=== PATIENT | male | born 1935 | race Caucasian/White ===

== ENCOUNTER 2019-05-10 15:30 | Outpatient (RCR) | payer MEDICARE, SELFPAY | END 2019-05-17 13:18 | disposition home or self-care (01) | LOC: ANHHIREHAB 15:30 | PROVIDERS: PCP Internal Medicine; Visit Provider Orthopaedic Surgery | DX: Z47.1 Aftercare following joint replacement surgery (principal) | CPT/HCPCS: 97110 ×9; 97140 ×2; 97162 ==

== ENCOUNTER 2019-09-26 12:12 | Outpatient (CLI) | payer MEDICARE, SELFPAY ==
--- NOTE | ~2019-09-26 | XR_ITS ---
EXAMINATION: XR md joint inject/aspiration DATE: 09/26/2019 13:20 INDICATION: Left elbow osteoarthritis and pain. TECHNIQUE: A time-out was performed to verify the patient's name, date of , and procedure to b e performed. The procedure including the risks, benefits, and alternatives was discussed with the pat ient. Risks discussed included bleeding and infection. The patient understood the risks and agreed to proceed. The skin overlying the left elbow joint was prepped and draped in usual sterile fashion. Anesthetic was administered with 1% lidocaine subcutaneously. A 23 G needle was advanced under fluor oscopic guidance into the joint. Injection of 1 mL of Omnipaque 240 confirmed intra-articular positi on of the needle. Subsequently, injectate consisting of 3 mL 1% lidocaine and 1 mL 40 mg/mL Depo-Med rol was instilled. The needle was removed and the entry site was cleaned and dressed. There were no immediate complications. Fluoroscopy exposure time was 0.1 minutes. The total number of images was 2 . FINDINGS: Real-time fluoroscopy demonstrates the needle in the left elbow joint. Patient's pain prior to procedure:0/10. IMPRESSION: 1. Left elbow joint injection of local anesthetic and steroid . Reviewed, dictated and finalized at location A. [employer]
== END 2019-09-26 12:13 | disposition home or self-care (01) ==
PROVIDERS: PCP Internal Medicine; Visit Provider Orthopaedic Surgery
DX: M19.022 Primary osteoarthritis, left elbow (principal)
CPT/HCPCS: 20605; J1030; Q9966

== ENCOUNTER → 2020-12-29 11:16 | Outpatient (REF) | payer MEDICARE, SELFPAY | LOC: ANHLAB 11:16 | PROVIDERS: PCP Internal Medicine; Visit Provider Nurse Practitioner | DX: L30.9 Dermatitis, unspecified (principal) | CPT/HCPCS: 88305 ==

== ENCOUNTER → 2021-12-28 11:15 | Outpatient (REF) | payer MEDICARE, SELFPAY | LOC: ANHLAB 11:15 | PROVIDERS: PCP Internal Medicine; Visit Provider Nurse Practitioner | DX: D49.2 Neoplasm of unspecified behavior of bone, soft tissue, and skin (principal) | CPT/HCPCS: 88305 ==

== ENCOUNTER 2023-01-20 15:29 | Outpatient (NON) | payer MEDICARE, SELFPAY ==
[2023-01-20 16:57] LABS: Source Synovial Fluid Synovial fluid
[2023-01-20 16:58] LABS: Appearance Synovial Fluid Hazy (Clear); Color Synovial Fluid Yellow (Colorless); Lymphocytes Synovial Fluid 59 %; Macrophages Synovial Fluid 1 %; Monocytes Synovial Fluid 37 %; Neutrophils Synovial Fluid 1 % (0-25); Nucleated Cell Synovial Fluid 802 /uL (0-200); RBC Synovial Fluid < 2000 /uL (0-0)
[2023-01-20 16:59] LABS: Other Cells Synovial Fluid 2 %
[2023-01-20 17:02] LABS: Crystals Synovial Fluid None Seen (None Seen)
== END 2023-01-20 15:30 | disposition home or self-care (01) ==
LOC: ANHLAB 15:32
PROVIDERS: PCP Physician Assistant Medical; Visit Provider Orthopaedic Surgery
DX: M25.561 Pain in right knee (principal); M25.461 Effusion, right knee; Z96.651 Presence of right artificial knee joint
CPT/HCPCS: 87070; 87075; 87205; 89051; 89060

== ENCOUNTER 2023-08-19 09:49 | Outpatient (CLI) | payer MEDICARE, SELFPAY ==
--- NOTE | ~2023-08-19 | XR_ITS ---
Lumbosacral Spine: AP and lateral views Clinical History: Pain Findings: No acute fracture identified. There is grade 1 anterolisthesis of L3 over L4. There is yandy re degenerative disc narrowing from L2 through S1. There is severe facet arthropathy from L2 through S1. There is mild levoscoliosis of the lumbar spine. The sacroiliac joints are normally outlined. Impression: Severe degenerative spondylosis with grade 1 anterolisthesis of L3 over L4. Reviewed, dictated and finalized at location M. [employer] Impression: Severe degenerative spondylosis with grade 1 anterolisthesis of L3 over L4.
== END 2023-08-19 09:50 | disposition home or self-care (01) ==
LOC: ANHIMG 09:55
PROVIDERS: PCP Physician Assistant Medical; Visit Provider Physician Assistant
DX: M48.061 Spinal stenosis, lumbar region without neurogenic claudication (principal); M47.816 Spondylosis without myelopathy or radiculopathy, lumbar region
CPT/HCPCS: 72100